=== PATIENT | female | born 1955 | race Two or more races ===

== ENCOUNTER 2020-01-01 11:48 | Inpatient (IN) | payer OTHER ==
--- NOTE | 2020-01-01 12:30 | BHS.RME ---
Substance Use & Tx History - Substance Use History Alcohol Substance amount: six pack beers Frequency of use: Daily Substance route: Oral Date of Last Use: 12/31/19 Heroin Substance amount: 5-10 bags Frequency of use: Daily Substance route: Inhalation (ex: sniffing or snorting) Date of Last Use: 01/01/20 - Last Treatment Date of last treatment: 2015 Treatment type: Substance Use Disorder (QIANA) Where was last treatment: Detox Physical/Psych/Mental Status - Behavior General Behavior: Increased activity (restlessness, agitation) Eye Contact: Normal - Cooperativeness Cooperativeness: Cooperative - Thinking Thought Processes: Tight, Logical, Goal Directed - Physical Health Problems Is patient presently having any pain?: No Does patient presently have any injuries (include location): No Does patient currently have a fever: No Is patient : No CIWA Nausea/Vomitin Muscle Tremors: 3 Anxiety: 3 Agitation: 3 Orientation: 1-Uncertain about Date Tacttile Disturbances: 0-None Auditory Disturbances: 0-None Visual Disturbances: 0-None Headache: 1-Very Mild
--- NOTE | 2020-01-01 14:54 | HP ---
COWS - Scale Resting Pulse: 0= [place] 80 or Below Sweatin= Chills/Flushing Restless Observation: 1= Difficult to Sit Still Pupil Size: 1= Pupils >than Normal Bone or Joint Aches: 1= Mild Discomfort Runny Nose/ Eye Tearin= Nasal Congestion GI Upset > 30mins: 1= Stomach Cramp Tremor Observation: 1= Tremor [place], Not Seen Yawning Observation: 1= 1-2x During Session Anxiety or Irritability: 1=Feels Anxious/Irritable Goose Flesh Skin: 0=Smooth Skin (not yet in full withdrawals due to use today hours before admission) COWS Score: 9 CIWA Score Nausea/Vomitin Muscle Tremors: 3 Anxiety: 3 Agitation: 3 Orientation: 1-Uncertain about Date Tacttile Disturbances: 0-None Auditory Disturbances: 0-None Visual Disturbances: 0-None Headache: 1-Very Mild - Admission Criteria OASAS Guidelines: Admission for Medically Managed Detox: Requires at least one of the followin. CIWA greater than 12 2. Seizures within the past 24 hours 3. Delirium tremens within the past 24 hours 4. Hallucinations within the past 24 hours 5. Acute intervention needed for co occurring medical disorder 6. Acute intervention needed for co occurring psychiatric disorder 7. Severe withdrawal that cannot be handled at a lower level of care (continued vomiting, continued diarrhea, abnormal vital signs) requiring intravenous medication and/or fluids 8. Admitting History and Physical - Admission Chief Complaint: "I'm drinking too much. I need help." History of Present Illness: 64 year old female with history of alcohol dependence, opioid dependence with withdrawals. He was last here in 2015 and completed detox but has relapsed right thereafter. Substance Use & Tx History - Substance Use History Alcohol Substance amount: six pack beers Frequency of use: Daily Substance route: Oral Date of Last Use: 12/31/19 Heroin Substance amount: 5-10 bags Frequency of use: Daily Substance route: Inhalation (ex: sniffing or snorting) Date of Last Use: 01/01/20 - Last Treatment Date of last treatment: 2015 Treatment type: Substance Use Disorder (QIANA) Where was last treatment: Detox PMH: Asthma Psurg: None Psych: Depression Living in the [place] alone, has no legal problems. KENJI= 0 CIWA=14 Urine Tox: FEN, MTD Patient meets criteria as she has had blackouts in the past and endorses the need for an eye bill hiker daily. History Source: Patient Limitations to Obtaining History: No Limitations - Past Medical History Pulmonary: Yes: Asthma ...LMP: 12/06/97 Psych: Yes: Depression - Past Surgical History Past Surgical History: Yes: None - Smoking History Smoking history: Former smoker Have you smoked in the past 12 months: No Aproximately how many cigarettes per day: 0 If you are a former smoker, when did you quit?: 2009 - Alcohol/Substance Use Hx Alcohol Use: Yes Number of Drinks Daily: 10 History of Substance Use: reports: Heroin - Social History Usual Living Arrangement: Yes: Alone Do you think of yourself as: Straight/Heterosexual ADL: Independent Occupation: unemployed on ssi History of Recent Travel: No Admission [facility] Allergies/Adverse Reactions: Allergies Allergy/AdvReac Type Severity Reaction Status Date / Time No Known Allergies Allergy Verified 12/09/15 16:56 Exam Limitations: No Limitations - Ebola screening Have you traveled outside of the country in the last 21 days: No Have you had contact with anyone from an Ebola affected area: No Have you been sick,other than usual withdrawal symptoms: No Do you have a fever: No - Review of Systems Constitutional: Chills, Diaphoresis EENT: reports: No Symptoms Reported Respiratory: reports: No Symptoms reported Cardiac: reports: No Symptoms Reported GI: reports: No Symptoms Reported : reports: No Symptoms Reported Musculoskeletal: reports: No Symptoms Reported Integumentary: reports: No Symptoms Reported Neuro: reports: Tremors Endocrine: reports: No Symptoms Reported Hematology: reports: No Symptoms Reported Psychiatric: reports: Judgement Intact, Mood/Affect Appropiate, Orientated x3, Agitated, Anxious Other Systems: Reviewed and Negative Patient History - Patient Medical History Hx Anemia: No Hx Asthma: Yes Hx Chronic Obstructive Pulmonary Disease (COPD): No Hx Cancer: No Hx Cardiac Disorders: No Hx Congestive Heart Failure: No Hx Hypertension: No Hx Hypercholesterolemia: No Hx Pacemaker: No HX Cerebrovascular Accident: No Hx Seizures: No Hx Dementia: No Hx Diabetes: No Hx Gastrointestinal Disorders: No Hx Liver Disease: No Hx Genitourinary Disorders: No Hx Sexually Transmitted Disorders: No Hx Renal Disease (ESRD): No Hx Thyroid Disease: No Hx Human Immunodeficiency Virus (HIV): No (negative 3 months ago ) Hx Hepatitis C: No Hx Depression: Yes Hx Suicide Attempt: No Hx Bipolar Disorder: No Hx Schizophrenia: No - Patient Surgical History Past Surgical History: No Hx Neurologic Surgery: No Hx Cataract Extraction: No Hx Cardiac Surgery: No Hx Lung Surgery: No Hx Breast Surgery: No Hx Breast Biopsy: No Hx Abdominal Surgery: No Hx Appendectomy: No Hx Cholecystectomy: No Hx Genitourinary Surgery: No Hx Section: No Hx Orthopedic Surgery: No Anesthesia Reaction: No - PPD History Previous Implant?: Yes Documented Results: Negative w/proof Implanted On Prior [facility] Admission?: Yes Date: 12/11/15 Results: 0 MM PPD to be Administered?: Yes - Reproductive History Last Menstrual Period: 12/06/97 - Smoking Cessation Smoking history: Former smoker Have you smoked in the past 12 months: No Aproximately how many cigarettes per day: 0 If you are a former smoker, when did you quit?: 2009 Cigars Per Day: 0 Hx Chewing Tobacco Use: No Initiated information on smoking cessation: No - Substances abused Alcohol Other (specify): 6 beers and 1 pint vodka Substance route: Oral Frequency: Daily Age of first use: 16 Date of last use: 12/31/19 Heroin Substance route: Inhalation Frequency: Daily Amount used: 5-10 bags Age of first use: 16 Date of last use: 01/01/20 Admission Physical Exam S - Physical General Appearance: Yes: Moderate Distress, Tremorous, Irritable, Sweating, Anxious HEENTM: Yes: EOMI, Hearing grossly Normal, Normal ENT Inspection, Normocephalic, Normal Voice, OSCAR, Pharynx Normal, Tm's normal Respiratory: Yes: Chest Non-Tender, Lungs Clear, Normal Breath Sounds, No Respiratory Distress, No Accessory Muscle Use Neck: Yes: No masses,lesions,Nodules, Supple, Trachea in good position Breast: Yes: Breast Exam Deferred Cardiology: Yes: Regular Rhythm, Regular Rate, S1, S2 Abdominal: Yes: Normal Bowel Sounds, Non Tender, Soft, Protuberent Genitourinary: Yes: Within Normal Limits Back: Yes: Normal Inspection Musculoskeletal: Yes: full range of Motion, Gait Steady, Pelvis Stable Extremities: Yes: Normal Capillary Refill, Normal Inspection, Normal Range of Motion, Non-Tender Neurological: Yes: form setter steel pan forms II-XII NML intact, Fully Oriented, Alert, Motor Strength 5/5, Normal Mood/Affect, Normal Response Integumentary: Yes: Normal Color, Warm Lymphatic: Yes: Within Normal Limits - Diagnostic (1) Alcohol dependence Current Visit: Yes Status: Acute (2) MDD (major depressive disorder) Current Visit: Yes Status: Acute Qualifiers: Qualified Code(s): F33.0 - Major depressive disorder, recurrent, mild (3) Opioid dependence Current Visit: Yes Status: Acute (4) Substance induced mood disorder Current Visit: Yes Status: Acute (5) Substance or medication-induced sleep disorder, insomnia type Current Visit: Yes Status: Acute (6) Alcohol dependence with uncomplicated withdrawal Current Visit: Yes Status: Chronic (7) Asthma Current Visit: Yes Status: Chronic (8) Essential hypertension Current Visit: No Status: Chronic (9) Opioid dependence with withdrawal Current Visit: No Status: Chronic Cleared for Admission BHS - Detox or Rehab Detox Regimen/Protocol: Methadone/Librium Claeared for Rehab Admission: No Screened but not Admitted - Documentation of Visit Screened but not Admitted: No Breathalyzer - Breathalyzer Breathalyzer: 0 Vital Signs - Vital Signs Vital signs refused: No Temperature: 97.4 F Pulse Rate: 72 Respiratory Rate: 18 Blood Pressure: 120/75 BP Location: Left Arm Blood Pressure position: Sitting - Height Height: 5 ft 3 in - Weight Weight: 198 lb Weight measurement method: Standing scale - BMI Body Mass Index (BMI): 35.0 - Bowel Function Bowel Movement: No Urine Drug Screen - Control Is test valid?: Yes - Results Drug screen NEGATIVE: No Urine drug screen results: FEN-Fentanyl, MTD-Methadone Inpatient Rehab Admission - Rehab Decision to Admit Inpatient rehab admission?: No
[2020-01-01 15:04] VITALS: BMI 35.0
[2020-01-01] MEDS ORDERED: chlordiazePOXIDE HCL 25 MG CAPSULE PO PRN (15:04)
[2020-01-01] MEDS ORDERED: MENTHOL/PHENOL 1 EACH UD MM PRN (15:04)
[2020-01-01] MEDS ORDERED: ACETAMINOPHEN 325 MG TABLET (FP) PO PRN ×2 (15:04)
[2020-01-01] MEDS ORDERED: METHOCARBAMOL 500 MG TABLET PO PRN (15:04)
[2020-01-01] MEDS ORDERED: MAGNESIUM HYDROX 2400MG/30ML ORAL SUSPENSION 30 ML CUP PO PRN (15:04)
[2020-01-01] MEDS ORDERED: IBUPROFEN 400 MG TABLET (FP) PO PRN (15:04)
[2020-01-01] MEDS ORDERED: cloNIDine HCL 0.1 MG TABLET PO PRN (15:04)
[2020-01-01] MEDS ORDERED: MAG HYDROX/AL HYDROX/SIMETH 30 ML UNIT-DOSE CUP PO PRN (15:04)
[2020-01-01] MEDS ORDERED: BISMUTH SUBSALICYLATE 524 MG/30 ML UD PO PRN (15:04)
[2020-01-01] MEDS ORDERED: MAGNESIUM CITRATE 300 ML BOTTLE PO PRN (15:04)
[2020-01-01] MEDS ORDERED: ONDANSETRON *ODT* 4 MG TABLET SL ONE (16:00)
[2020-01-01] MEDS ORDERED: METHADONE HCL 10 MG TABLET (FOR DETOX USE ONLY) PO ONE (16:00)
[2020-01-01] MEDS: PRENATAL VITAMINS W/ FOLIC ACID TABLET (FP) PO SCH (16:01)
[2020-01-01 18:08] LABS: HEMATOCRIT 38.3 % (32.4-45.2); HEMOGLOBIN 12.6 GM/dL (10.7-15.3); MCH 30.4 pg (25.7-33.7); MEAN PLT VOLUME 7.8 fl (7.5-11.1); PLATELET COUNT 265 K/MM3 (134-434); RBC 4.16 M/mm3 (3.60-5.2); RDW 14.5 % (11.6-15.6)
[2020-01-01 18:18] LABS: ALBUMIN 3.5 g/dl (3.4-5.0); BLOOD UREA NITROGEN 10.9 mg/dL (7-18); CALCIUM 8.9 mg/dL (8.5-10.1); CREATININE 0.9 mg/dL (0.55-1.3); POTASSIUM 4.3 mmol/L (3.5-5.1); TOT PROT 7.1 g/dl (6.4-8.2)
[2020-01-01] MEDS: hydrOXYzine PAMOATE 25 MG CAPSULE (FP) PO SCH ×2 (18:18→22:20)
[2020-01-01] MEDS: chlordiazePOXIDE HCL 25 MG CAPSULE PO SCH ×2 (18:18→22:20)
[2020-01-01] MEDS ORDERED: MELATONIN 5 MG TABLETS PO SCH (22:00)
[2020-01-01] MEDS: THIAMINE HCL 100 MG TABLET (FP) PO SCH (22:19)
[2020-01-02] MEDS: chlordiazePOXIDE HCL 25 MG CAPSULE PO SCH ×4 (06:21→22:06)
[2020-01-02] MEDS: hydrOXYzine PAMOATE 25 MG CAPSULE (FP) PO SCH ×2 (06:21→11:07)
[2020-01-02] MEDS ORDERED: METHADONE HCL 10 MG TABLET (FOR DETOX USE ONLY) ONE (09:01)
[2020-01-02] MEDS ORDERED: METHADONE HCL 5 MG TABLET (FOR DETOX USE ONLY) ONE (09:01)
[2020-01-02] MEDS ORDERED: METHADONE (DETOX) 20 MG, METHADONE (DETOX) 5 MG PO ONE (10:00)
[2020-01-02] MEDS: PRENATAL VITAMINS W/ FOLIC ACID TABLET (FP) PO SCH (11:07)
--- NOTE | 2020-01-02 11:50 | CONSULT ---
[facility] Psychiatric Consult - Data Date of interview: 01/02/20 Admission source: Self-referred Identifying data: Ms Alonso is a 64 years old single female, mother of 4 children, unemployed receiving SSI, domiciled living in the [place] seeking detox treatment for alcohol and opioid Substance Abuse History: Reports history of alcohol and heroin use. Refer to addiction counselor's summary for further information Medical History: Significant for bronchial asthma Psychiatric History: Patient is known for five previous admission to this facility. She is jordanian speaking and a staff member acted as service developer. She is a poor and non informative historian. In December 2007, She reported being diagnosed with MDD in 2007 and in December 2015, she reported that she was diagnosed with MDD in her early 30's. She cannot tell exactly now when she was diagnosed saying" years". Denies previous psychiatric hospitalization but reported history of psychiatric hospitalization in previous admissions. Reports that she currently sees a psychiatrist at a clinic on [facility] in the [place] and she is preceibed medication. She cannot tell name of medication and name of name and location of her pharmacy. In the previous admission, she reported receving outpatient psychiatric treatment at [facility]. Denies previous suicidal attempt. At present, reports feeling depressed and sleeping poorly Physical/Sexual Abuse/Trauma History: Denies Mental Status Exam - Mental Status Exam Alert and Oriented to: Time, Place, Person Cognitive Function: Fair Patient Appearance: Well Groomed Mood: Depressed Affect: Appropriate Patient Behavior: Cooperative Speech Pattern: Clear Voice Loudness: Normal Thought Process: Intact, Goal Oriented Thought Disorder: Not Present Hallucinations: Denies Suicidal Ideation: Denies Homicidal Ideation: Denies Insight/Judgement: Poor Sleep: Poorly Appetite: Fair Muscle strength/Tone: Normal Gait/Station: Normal Psychiatric Findings - Problem List ([place] 1, 2,3) (1) Depressive disorder Current Visit: Yes Status: Chronic (2) MDD (major depressive disorder) Current Visit: Yes Status: Ruled-out (3) Substance induced mood disorder Current Visit: Yes Status: Acute (4) Substance-induced sleep disorder Current Visit: Yes Status: Acute (5) Alcohol dependence, uncomplicated Current Visit: Yes Status: Acute (6) Uncomplicated opioid dependence Current Visit: Yes Status: Acute (7) Asthma Current Visit: Yes Status: Chronic - Initial Treatment Plan Initial Treatment Plan: 1) Start Melatonin 10 mg po HS prn for insomnia. 2) Continue inpatient detoxification
--- NOTE | 2020-01-02 12:35 | PN ---
[facility] CIWA - CIWA Score Nausea/Vomitin-No Nausea/No Vomiting Muscle Tremors: 3 Anxiety: 2 Agitation: 2 Paroxysmal Sweats: 2 Orientation: 0-Oriented Tacttile Disturbances: 0-None Auditory Disturbances: 0-None Visual Disturbances: 0-None Headache: 0-None Present CIWA-Ar Total Score: 9 BHS COWS - Scale Resting Pulse: 0= [place] 80 or Below Sweatin= Chills/Flushing Restless Observation: 1= Difficult to Sit Still Pupil Size: 0= Normal to Room Light Bone or Joint Aches: 1= Mild Discomfort Runny Nose/ Eye Tearin= Nasal Congestion GI Upset > 30mins: 0= None Tremor Observation of Outstretched Hands: 1= Tremor [place], Not Seen Yawning Observation: 1= 1-2x During Session Anxiety or Irritability: 1=Feels Anxious/Irritable Goose Flesh Skin: 0=Smooth Skin COWS Score: 7 S Progress Note (SOAP) Subjective: sweats shakes body aches interrupted sleep Objective: 01/02/20 12:34 Vital Signs Temperature 98.0 F 01/02/20 08:51 Pulse Rate 67 01/02/20 08:51 Respiratory Rate 18 01/02/20 08:51 Blood Pressure 100/58 L 01/02/20 08:51 O2 Sat by Pulse Oximetry (%) 96 01/02/20 05:41 Laboratory Tests 01/01/20 01/01/20 01/01/20 15:00 15:00 15:00 WBC 6.0 RBC 4.16 Hgb 12.6 Hct 38.3 MCV 92.0 MCH 30.4 MCHC 33.0 RDW 14.5 Plt Count 265 MPV 7.8 Sodium 141 Potassium 4.3 Chloride 105 Carbon Dioxide 29 Anion Gap 8 BUN 10.9 Creatinine 0.9 Est GFR (CKD-EPI)AfAm 78.32 Est GFR (CKD-EPI)NonAf 67.57 Random Glucose 102 Calcium 8.9 Total Bilirubin 1.0 AST 28 ALT 38 Alkaline Phosphatase 67 Total Protein 7.1 Albumin 3.5 POC Urine HCG, Qual Negative Syphilis Serology 01/01/20 15:00 WBC RBC Hgb Hct MCV MCH MCHC RDW Plt Count MPV Sodium Potassium Chloride Carbon Dioxide Anion Gap BUN Creatinine Est GFR (CKD-EPI)AfAm Est GFR (CKD-EPI)NonAf Random Glucose Calcium Total Bilirubin AST ALT Alkaline Phosphatase Total Protein Albumin POC Urine HCG, Qual Syphilis Serology Non-reactive labs noted aaox3 ambulating no acute distress Assessment: 01/02/20 12:35 withdrawals Plan: continue detox increase fluids
[2020-01-02] MEDS ORDERED: MELATONIN 5 MG TABLETS PO PRN (13:43)
[2020-01-02] MEDS: THIAMINE HCL 100 MG TABLET (FP) PO SCH (22:06)
[2020-01-03] MEDS: chlordiazePOXIDE HCL 25 MG CAPSULE PO SCH ×4 (06:28→22:12)
[2020-01-03] MEDS ORDERED: METHADONE HCL 10 MG TABLET (FOR DETOX USE ONLY) PO ONE (10:00)
[2020-01-03] MEDS: PRENATAL VITAMINS W/ FOLIC ACID TABLET (FP) PO SCH (10:43)
--- NOTE | 2020-01-03 11:01 | PN ---
[facility] CIWA - CIWA Score Nausea/Vomitin-No Nausea/No Vomiting Muscle Tremors: 2 Anxiety: 2 Agitation: 1-Slight > Activity Paroxysmal Sweats: 2 Orientation: 0-Oriented Tacttile Disturbances: 0-None Auditory Disturbances: 0-None Visual Disturbances: 0-None Headache: 0-None Present CIWA-Ar Total Score: 7 BHS COWS - Scale Resting Pulse: 0= [place] 80 or Below Sweatin= Chills/Flushing Restless Observation: 1= Difficult to Sit Still Pupil Size: 0= Normal to Room Light Bone or Joint Aches: 2= Severe Diffuse Aches Runny Nose/ Eye Tearin= None GI Upset > 30mins: 0= None Tremor Observation of Outstretched Hands: 2= Slight Tremor Visible Yawning Observation: 0= None Anxiety or Irritability: 1=Feels Anxious/Irritable Goose Flesh Skin: 0=Smooth Skin COWS Score: 7 [facility] Progress Note (SOAP) Subjective: Complaints of anxiety, irritability, tremors, sweats, and body aches. Objective: 01/03/20 11:00 Vital Signs 01/03/20 06:10 Temperature 97.5 F L Pulse Rate 58 L Respiratory 18 Rate Blood Pressure 113/53 L O2 Sat by Pulse 96 Oximetry (%) Laboratory Last Values WBC 6.0 K/mm3 (4.0-10.0) 01/01/20 15:00 RBC 4.16 M/mm3 (3.60-5.2) 01/01/20 15:00 Hgb 12.6 GM/dL (10.7-15.3) 01/01/20 15:00 Hct 38.3 % (32.4-45.2) 01/01/20 15:00 MCV 92.0 fl (80-96) 01/01/20 15:00 MCH 30.4 pg (25.7-33.7) 01/01/20 15:00 MCHC 33.0 g/dl (32.0-36.0) 01/01/20 15:00 RDW 14.5 % (11.6-15.6) 01/01/20 15:00 Plt Count 265 K/MM3 (134-434) 01/01/20 15:00 MPV 7.8 fl (7.5-11.1) 01/01/20 15:00 Sodium 141 mmol/L (136-145) 01/01/20 15:00 Potassium 4.3 mmol/L (3.5-5.1) 01/01/20 15:00 Chloride 105 mmol/L (98-107) 01/01/20 15:00 Carbon Dioxide 29 mmol/L (21-32) 01/01/20 15:00 Anion Gap 8 MMOL/L (8-16) 01/01/20 15:00 BUN 10.9 mg/dL (7-18) 01/01/20 15:00 Creatinine 0.9 mg/dL (0.55-1.3) 01/01/20 15:00 Est GFR (CKD-EPI)AfAm 78.32 01/01/20 15:00 Est GFR (CKD-EPI)NonAf 67.57 01/01/20 15:00 Random Glucose 102 mg/dL (74-106) 01/01/20 15:00 Calcium 8.9 mg/dL (8.5-10.1) 01/01/20 15:00 Total Bilirubin 1.0 mg/dL (0.2-1) 01/01/20 15:00 AST 28 U/L (15-37) 01/01/20 15:00 ALT 38 U/L (13-61) 01/01/20 15:00 Alkaline Phosphatase 67 U/L (45-117) 01/01/20 15:00 Total Protein 7.1 g/dl (6.4-8.2) 01/01/20 15:00 Albumin 3.5 g/dl (3.4-5.0) 01/01/20 15:00 POC Urine HCG, Qual Negative 01/01/20 15:00 Syphilis Serology Non-reactive (NONREACTIVE) 01/01/20 15:00 COVID-19 (HEAVENLY) Not detected (Not Detected) 01/01/20 15:15 Labs noted. Assessment: 01/03/20 11:01 Patient was seen and evaluated at bedside, alert and oriented x3, in no acute respiratory distress. Full ROM, ambulating without assistance. Skin warm to touch without lesion. Withdrawal symptoms. Plan: Continue detox protocol.
[2020-01-03] MEDS: THIAMINE HCL 100 MG TABLET (FP) PO SCH (22:12)
[2020-01-04] MEDS ORDERED: chlordiazePOXIDE HCL 10 MG CAPSULE PO PRN
[2020-01-04] MEDS: chlordiazePOXIDE HCL 10 MG CAPSULE PO SCH ×4 (05:48→22:31)
[2020-01-04] MEDS ORDERED: METHADONE HCL 5 MG TABLET (FOR DETOX USE ONLY) ONE (09:42)
[2020-01-04] MEDS ORDERED: METHADONE HCL 10 MG TABLET (FOR DETOX USE ONLY) ONE (09:42)
[2020-01-04] MEDS ORDERED: METHADONE (DETOX) 10 MG, METHADONE (DETOX) 5 MG PO ONE (10:00)
[2020-01-04] MEDS: PRENATAL VITAMINS W/ FOLIC ACID TABLET (FP) PO SCH (10:24)
[2020-01-04] MEDS: hydrOXYzine PAMOATE 25 MG CAPSULE (FP) PO PRN (10:25)
[2020-01-04] MEDS ORDERED: ALBUTEROL SO4 HFA INHALER IH PRN (11:32)
--- NOTE | 2020-01-04 17:28 | PN ---
[facility] CIWA - CIWA Score Nausea/Vomitin-No Nausea/No Vomiting Muscle Tremors: 2 Anxiety: 1-Mildly Anxious Agitation: 1-Slight > Activity Paroxysmal Sweats: 2 Orientation: 0-Oriented Tacttile Disturbances: 0-None Auditory Disturbances: 0-None Visual Disturbances: 0-None Headache: 0-None Present CIWA-Ar Total Score: 6 S COWS - Scale Resting Pulse: 1= [place] 81-100 Sweatin= No chills or Flushing Restless Observation: 0= Sits Still Pupil Size: 0= Normal to Room Light Bone or Joint Aches: 0= None Runny Nose/ Eye Tearin= None GI Upset > 30mins: 1= Stomach Cramp Tremor Observation of Outstretched Hands: 2= Slight Tremor Visible Yawning Observation: 0= None Anxiety or Irritability: 2=Irritable/Anxious Goose Flesh Skin: 0=Smooth Skin COWS Score: 6 S Progress Note (SOAP) Subjective: Body ache Objective: 01/04/20 17:27 Last Vital Signs Temp Pulse Resp BP Pulse Ox 97.8 F 89 24 H 126/80 96 01/04/20 13:08 01/04/20 13:08 01/04/20 13:08 01/04/20 13:08 01/04/20 13:08 Laboratory Tests 01/01/20 01/01/20 01/01/20 15:00 15:00 15:00 WBC 6.0 RBC 4.16 Hgb 12.6 Hct 38.3 MCV 92.0 MCH 30.4 MCHC 33.0 RDW 14.5 Plt Count 265 MPV 7.8 Sodium 141 Potassium 4.3 Chloride 105 Carbon Dioxide 29 Anion Gap 8 BUN 10.9 Creatinine 0.9 Est GFR (CKD-EPI)AfAm 78.32 Est GFR (CKD-EPI)NonAf 67.57 Random Glucose 102 Calcium 8.9 Total Bilirubin 1.0 AST 28 ALT 38 Alkaline Phosphatase 67 Total Protein 7.1 Albumin 3.5 POC Urine HCG, Qual Negative Syphilis Serology COVID-19 (HEAVENLY) 01/01/20 01/01/20 15:00 15:15 WBC RBC Hgb Hct MCV MCH MCHC RDW Plt Count MPV Sodium Potassium Chloride Carbon Dioxide Anion Gap BUN Creatinine Est GFR (CKD-EPI)AfAm Est GFR (CKD-EPI)NonAf Random Glucose Calcium Total Bilirubin AST ALT Alkaline Phosphatase Total Protein Albumin POC Urine HCG, Qual Syphilis Serology Non-reactive COVID-19 (HEAVENLY) Not detected Labs reviewed Assessment: 01/04/20 17:27 Withdrawal sxs Plan: Continue detox Encourage PO water intake
[2020-01-04] MEDS: AMMONIUM LACTATE 12% LOTION 225 GM BOTTLE TP SCH (22:31)
[2020-01-04] MEDS: THIAMINE HCL 100 MG TABLET (FP) PO SCH (22:31)
[2020-01-05] MEDS: chlordiazePOXIDE HCL 10 MG CAPSULE PO SCH ×2 (05:23→17:42)
[2020-01-05] MEDS ORDERED: METHADONE HCL 10 MG TABLET (FOR DETOX USE ONLY) PO ONE (10:00)
[2020-01-05] MEDS: AMMONIUM LACTATE 12% LOTION 225 GM BOTTLE TP SCH (10:15)
[2020-01-05] MEDS: PRENATAL VITAMINS W/ FOLIC ACID TABLET (FP) PO SCH (10:15)
--- NOTE | 2020-01-05 10:39 | PN ---
[facility] CIWA - CIWA Score Nausea/Vomitin-No Nausea/No Vomiting Muscle Tremors: 1-None Visible, but Webb Anxiety: 1-Mildly Anxious Agitation: 1-Slight > Activity Paroxysmal Sweats: No Perspiration Orientation: 0-Oriented Tacttile Disturbances: 0-None Auditory Disturbances: 0-None Visual Disturbances: 0-None Headache: 0-None Present CIWA-Ar Total Score: 3 S COWS - Scale Resting Pulse: 0= [place] 80 or Below Sweatin= No chills or Flushing Restless Observation: 0= Sits Still Pupil Size: 0= Normal to Room Light Bone or Joint Aches: 1= Mild Discomfort Runny Nose/ Eye Tearin= None GI Upset > 30mins: 0= None Tremor Observation of Outstretched Hands: 0= None Yawning Observation: 1= 1-2x During Session Anxiety or Irritability: 1=Feels Anxious/Irritable Goose Flesh Skin: 0=Smooth Skin COWS Score: 3 [facility] Progress Note (SOAP) Subjective: anxiety little sweats feeling better Objective: 01/05/20 10:38 Vital Signs Temperature 96.9 F L 01/05/20 08:56 Pulse Rate 68 01/05/20 08:56 Respiratory Rate 18 01/05/20 08:56 Blood Pressure 123/60 01/05/20 08:56 O2 Sat by Pulse Oximetry (%) 95 01/05/20 05:19 aaox3 ambulating no acute distress Assessment: 01/05/20 10:38 withdrawals Plan: continue detox d/c in am
[2020-01-05] MEDS: hydrOXYzine PAMOATE 25 MG CAPSULE (FP) PO PRN (22:15)
[2020-01-05] MEDS: THIAMINE HCL 100 MG TABLET (FP) PO SCH (22:16)
[2020-01-06] MEDS: AMMONIUM LACTATE 12% LOTION 225 GM BOTTLE TP SCH ×2 (00:11→10:05)
[2020-01-06] MEDS ORDERED: chlordiazePOXIDE HCL 10 MG CAPSULE PO ONE (05:00)
[2020-01-06] MEDS ORDERED: METHADONE HCL 5 MG TABLET (FOR DETOX USE ONLY) PO ONE (06:00)
[2020-01-06 09:34] VITALS: BP 125/78; PULSE 101; TEMP 96.4
[2020-01-06] MEDS: PRENATAL VITAMINS W/ FOLIC ACID TABLET (FP) PO SCH (10:05)
--- NOTE | 2020-01-06 10:46 | DS ---
[facility] Detox Discharge Summary Admission Date: 01/01/20 Discharge Date: 01/06/20 - History Present History: Alcohol Dependence, Opioid Dependence - Physical Exam Results Vital Signs: Vital Signs Temperature 96.4 F L 01/06/20 08:52 Pulse Rate 101 H 01/06/20 08:52 Respiratory Rate 18 01/06/20 08:52 Blood Pressure 125/78 01/06/20 08:52 O2 Sat by Pulse Oximetry (%) 96 01/06/20 07:07 Pertinent Admission Physical Exam Findings: Vital Signs Temperature 96.4 F L 01/06/20 08:52 Pulse Rate 101 H 01/06/20 08:52 Respiratory Rate 18 01/06/20 08:52 Blood Pressure 125/78 01/06/20 08:52 O2 Sat by Pulse Oximetry (%) 96 01/06/20 07:07 Laboratory Tests 01/01/20 01/01/20 01/01/20 15:00 15:00 15:00 WBC 6.0 RBC 4.16 Hgb 12.6 Hct 38.3 MCV 92.0 MCH 30.4 MCHC 33.0 RDW 14.5 Plt Count 265 MPV 7.8 Sodium 141 Potassium 4.3 Chloride 105 Carbon Dioxide 29 Anion Gap 8 BUN 10.9 Creatinine 0.9 Est GFR (CKD-EPI)AfAm 78.32 Est GFR (CKD-EPI)NonAf 67.57 Random Glucose 102 Calcium 8.9 Total Bilirubin 1.0 AST 28 ALT 38 Alkaline Phosphatase 67 Total Protein 7.1 Albumin 3.5 POC Urine HCG, Qual Negative Syphilis Serology COVID-19 (HEAVENLY) 01/01/20 01/01/20 15:00 15:15 WBC RBC Hgb Hct MCV MCH MCHC RDW Plt Count MPV Sodium Potassium Chloride Carbon Dioxide Anion Gap BUN Creatinine Est GFR (CKD-EPI)AfAm Est GFR (CKD-EPI)NonAf Random Glucose Calcium Total Bilirubin AST ALT Alkaline Phosphatase Total Protein Albumin POC Urine HCG, Qual Syphilis Serology Non-reactive COVID-19 (HEAVENLY) Not detected aaox3 ambulating no acute distress lungs CTA - Treatment Hospital Course: Detox Protocol Followed, Detoxed Safely, Responded well, Discharged Condition Good, Rehab Referral Accepted - Medication Discharge Medications: Ambulatory Orders Albuterol Sulfate Inhaler - [Ventolin HFA Inhaler -] 2 inh IH Q4H PRN #1 inh 12/14/15 - Diagnosis (1) Alcohol dependence, uncomplicated Current Visit: Yes Status: Chronic (2) MDD (major depressive disorder) Current Visit: Yes Status: Acute Qualifiers: Qualified Code(s): F33.0 - Major depressive disorder, recurrent, mild (3) Opioid dependence Current Visit: Yes Status: Chronic (4) Substance induced mood disorder Current Visit: Yes Status: Acute (5) Substance induced mood disorder Current Visit: Yes Status: Acute (6) Substance or medication-induced sleep disorder, insomnia type Current Visit: Yes Status: Acute (7) Substance-induced sleep disorder Current Visit: Yes Status: Acute (8) Asthma Current Visit: Yes Status: Chronic (9) Depressive disorder Current Visit: Yes Status: Chronic (10) MDD (major depressive disorder) Current Visit: Yes Status: Ruled-out - AMA Did Patient Leave Against Medical Advice: No
== END 2020-01-06 10:38 | disposition home or self-care (01) | DRG 773 ==
LOC: YASAS 11:48 → Y6N 15:15
PROVIDERS: ADMIT Allergy & Immunology; ATTEND Allergy & Immunology
PROC: HZ2ZZZZ Detoxification Services for Substance Abuse Treatment (ICD-10-PCS; principal; 2020-01-01)
DX: F11.23 Opioid dependence with withdrawal (principal); F10.230 Alcohol dependence with withdrawal, uncomplicated; F19.282 Other psychoactive substance dependence with psychoactive substance-induced sleep disorder; F19.24 Other psychoactive substance dependence with psychoactive substance-induced mood disorder; F33.0 Major depressive disorder, recurrent, mild; J45.909 Unspecified asthma, uncomplicated; L85.3 Xerosis cutis; Z56.0 Unemployment, unspecified
CPT/HCPCS: 36415; 80053; 81025; 85027; 86780; U0003